=== PATIENT | male | born 1990 | race Caucasian/White ===

== ENCOUNTER 2018-04-13 12:11 | Emergency (ER) | payer SELFPAY ==
[~2018-04-13] VITALS: Ht 177.8 cm; Wt 86.4 kg
[2018-04-13 13:56] LABS: ALANINE AMINOTRANSFERASE 18 U/L (12-78); ALBUMIN 3.9 G/DL (3.4-5.0); ALBUMIN/GLOBULIN RATIO 1.1 (1.1-1.5); ALKALINE PHOSPHATASE 83 IU/L (46-116); ANION GAP 12 (8-16); ASPARTATE AMINO TRANSFERASE 15 U/L (10-37); BILIRUBIN,TOTAL 0.2 MG/DL (0.1-1.0); BLOOD UREA NITROGEN 8 MG/DL (7-18); BUN/CREATININE RATIO 12.3 (5.4-32.0); CALCIUM 8.7 MG/DL (8.5-10.1); CHLORIDE 107 MMOL/L (99-107); CREATININE 0.65 MG/DL (0.60-1.10); ETHANOL 0.099 GM/DL (0.0-0.010); GLUCOSE 102 MG/DL (70-104); POTASSIUM 3.6 MMOL/L (3.5-5.1); SODIUM 144 MMOL/L (135-145); TOTAL CARBON DIOXIDE 24.7 MMOL/L (24-32); TOTAL PROTEIN 7.3 G/DL (6.4-8.2); eGFR > 90 ML/MIN
[2018-04-13 13:59] LABS: BASOPHILS % (AUTO) 0.3 % (0-1); EOSINOPHILS # (AUTO) 0.1 X10'3 (0-0.9); EOSINOPHILS % (AUTO) 0.7 % (0-6); HEMATOCRIT 45.9 % (42.0-52.0); HEMOGLOBIN 15.7 g/dl (14.0-17.9); LYMPHOCYTES # (AUTO) 1.7 X10'3 (1.1-4.8); LYMPHOCYTES % (AUTO) 15.9 % (21-51); MEAN CORPUSCULAR HEMOGLOBIN 30.1 PG (27.0-31.0); MEAN CORPUSCULAR HGB CONC 34.1 g/dL (33.0-36.5); MEAN CORPUSCULAR VOLUME 88.2 FL (78-98); MEAN PLATELET VOLUME 8.6 FL (7.4-10.4); MONOCYTES # (AUTO) 0.7 X10'3 (0-0.9); MONOCYTES % (AUTO) 6.6 % (2-12); NEUTROPHILS % (AUTO) 76.5 % (42-75); PLATELET COUNT 232 X10'3 (140-440); RED BLOOD COUNT 5.21 X10'6 (4.70-6.10); WHITE BLOOD COUNT 10.4 X10'3 (4.5-11.0)
[2018-04-13 14:39] LABS: URINE AMPHETAMINE SCREEN NEGATIVE (Neg); URINE BARBITUATE SCREEN NEGATIVE (Neg); URINE BENZODIAZEPINES SCREEN NEGATIVE (Neg); URINE CANNABINOID SCREEN NEGATIVE (Neg); URINE COCAINE SCREEN NEGATIVE (Neg); URINE METHADONE SCREEN NEGATIVE (Neg); URINE OPIATE SCREEN NEGATIVE (Neg); URINE PHENCYCLIDINE SCREEN NEGATIVE (Neg)
--- NOTE | 2018-04-13 16:40 | NUR ---
Report given to specialist on-call.
--- NOTE | 2018-04-13 17:55 | NUR ---
report to Melida RN, pt taken to overflow
--- NOTE | 2018-04-13 18:11 | NUR ---
PACKET HAS BEEN FAXED TO [facility]
--- NOTE | 2018-04-13 19:00 | NUR ---
Assumed care of pt., pt calm at this time and rr even and unlabored. Pt's father is at bedside and reports that he received a phone call from the pt's x-girlfriend stating that the pt. was trying to hurtv himself. The father reports that he then called 911. Pt. states he and his girlfriend broke up 10 months ago, she is a meth addict, and they have two children together. 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 Children are with a aquarist at this time. Pt. denies any S/I at this time or any hx of depression or anxiety. He currently works at [employer], however does admit to drinking beer everyday.
--- NOTE | 2018-04-13 19:18 | NUR ---
Pt's father: Junior Olmos
--- NOTE | 2018-04-13 19:58 | NUR ---
[facility], Carmen, spoke with pt. and his father and let them know that pt. will be evaluated by [facility] in the AM. They voice understanding and father states he will be back in the morning for the evaluation.
--- NOTE | 2018-04-13 20:00 | NUR ---
Pt. reports no home medications. He refused dinner, but accepted HS snack.
--- NOTE | 2018-04-13 21:08 | NUR ---
Pt. asleep on his back at this time, rr even and unlabored.
--- NOTE | 2018-04-13 23:02 | NUR ---
Pt. continues to sleep, laying on rt. side, appears to be resting comfortably
--- NOTE | 2018-04-14 01:01 | NUR ---
Pt. sleeping on his back, rr even and unlabored.
--- NOTE | 2018-04-14 03:03 | NUR ---
Pt. asleep on his rt. side, no s/s of distress, will continue to monitor.
--- NOTE | 2018-04-14 05:04 | NUR ---
Pt. sleeping on his back, HOB elevated, rr even an unlabored.
[2018-04-14 05:55] VITALS: BP 119/78
--- NOTE | 2018-04-14 06:38 | NUR ---
Nursing Note: Pt laying on L side, eyes closed, respirations even and unlabored, no S&S of distress, will continue to monitor.
--- NOTE | 2018-04-14 08:27 | NUR ---
Nursing Note: Pt sitting up to eat breakfast. He denies SI and depression. 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
--- NOTE | 2018-04-14 09:55 | NUR ---
Nursing Note: [facility] social services aide at pt bedside performing evaluation. No S&S of distress.
--- NOTE | 2018-04-14 10:50 | NUR ---
Nursing Note: Reviewed pt's discharge instructions and provided opportunity for questions. Pt signed instructions. Pt denies SI and suicide attempt. Suicide prevention information provided to pt. Pt's father is on his way to cherry picker operator the pt, pt will be discharged once father arrives.
== END 2018-04-14 11:21 | disposition home or self-care (01) ==
LOC: ER 12:12
DX: T71.162A Asphyxiation due to hanging, intentional self-harm, initial encounter (principal); F43.10 Post-traumatic stress disorder, unspecified; F17.200 Nicotine dependence, unspecified, uncomplicated; Y92.89 Other specified places as the place of occurrence of the external cause
CPT/HCPCS: 36415; 80053; 80305; 80320; 85025; 99285

== ENCOUNTER 2024-07-08 12:52 | Emergency (ER) | payer BC ==
[~2024-07-08] VITALS: Ht 185.4 cm; Wt 98.0 kg
--- NOTE | 2024-07-08 13:10 | Physician Documentation ---
History of Present Illness ~ Chief Complaint: Overdose Stated Complaint: INTENTIONAL OD Time Seen by MD: 13:09 Source: patient, family HPI 33-year-old male history of depression prior suicide attempts presenting for overdose. Per his mother his ex-girlfriend and mother of his child completely called off their relationship the last few days. He was drinking and took all of his gabapentin. Potentially he may have also taking tizanidine and ibuprofen. given narcan and IVF. Medication Reconciliation Allergies: Coded Allergies: No Known Allergies (Unverified , 07/08/24) Scheduled Naproxen (Naproxen), 1 TAB PO BID, (Reported) Miscellaneous Medications Cyclobenzaprine HCl (Cyclobenzaprine HCl), PO, (Reported) Gabapentin (Gabapentin), TAB PO, (Reported) Discontinued Medications Ibuprofen* (Motrin*), 1 TAB PO Q8H, (Reported) Discontinued Reason: Other Review of Systems Unable to obtain complete ROS: altered mental status Physical Exam Vital Signs: Heart Rate: 83, Respiratory Rate: 18, BP: 112/71, Pulse Oximetry: 97, Weight: 98.000 Physical Exam Lethargic but arousable slurred speech Head atraumatic Chest clear to auscultation bilaterally No murmur Abdomen is soft nontender neuro GCS 9 [id number] Skin no rash or wound lower extremity no edema Progress Progress Note 6:38 p.m. patient remains extremely lethargic, he is still arousable but given his hypotension and persistent encephalopathy he will be admitted for further management consulted poison control they recommend symptomatic management. Results/Orders Reviewed/noted all lab results: Yes Results/Orders Orders - TIFFANIE DELA CRUZ MD Med Rec (07/08/24 13:04) 1799.11 (07/08/24 13:04) Close Observation Level (07/08/24 13:04) Covid19 Binax Poc Result Entry (07/08/24 13:04) Substance Use Navigator (07/08/24 13:04) Regular Diet (07/08/24 Dinner) Non-Behavioral Restraints (07/08/24 ) * Straight Cath* (07/08/24 13:08) Electrocardiogram (07/08/24 13:09) Electrocardiogram (07/09/24 13:09) Electrocardiogram (07/10/24 13:09) Electrocardiogram (07/11/24 13:09) Page Hospitalist (07/08/24 18:04) Fill Out Med Reconciliation (07/08/24 18:04) Completed Orders - TIFFANIE DELA CRUZ MD Cbc/Diff (07/08/24 13:04) Drug Screen, Urine (07/08/24 13:04) Ethanol (07/08/24 13:04) Acetaminophen (07/08/24 13:04) Salicylate (07/08/24 13:04) TSH (07/08/24 13:04) BMP (07/08/24 13:04) Ringers Solution, Lacted (Lactated Ringe (07/08/24 13:35) Normal Saline 1000ml (Sodium Chloride 10 (07/08/24 13:35) Ua With Microscopic (07/08/24 16:41) Medications Received in ER Medications (Trade) Dose Ordered Sig/Pedro Route PRN Reason Start Time Stop Time Status Last Admin Dose Admin Lactated Ringer's 1,000 ml @ 1,000 mls/hr ONCE ONCE IV 07/08/24 13:35 07/08/24 14:34 DC 07/08/24 14:04 1,000 MLS/HR Sodium Chloride 1,000 ml @ 1,000 mls/hr Q1H ONCE IVB 07/08/24 13:35 07/08/24 14:34 DC 07/08/24 13:48 1,000 MLS/HR Vital Signs 07/08/24 07/08/24 07/08/24 07/08/24 12:55 13:36 13:50 14:49 Pulse 83 79 78 Resp 18 18 11 18 B/P (MAP) 112/71 106/61 (76) 108/79 (89) Pulse Ox 97 98 99 O2 Flow Rate 0 07/08/24 07/08/24 07/08/24 07/08/24 15:25 16:02 16:43 17:20 Pulse 82 86 88 77 Resp 14 15 12 12 B/P (MAP) 104/75 (85) 94/62 (73) 106/71 (83) 95/63 (74) Pulse Ox 97 98 97 98 O2 Flow Rate 0 0 0 0 07/08/24 18:04 Pulse 87 Resp 18 B/P (MAP) 98/69 (79) Pulse Ox 98 O2 Flow Rate 0 Laboratory Tests Test 07/08/24 13:10 07/08/24 13:24 07/08/24 16:41 White Blood Count 7.0 Red Blood Count 5.19 Hemoglobin 15.5 Hematocrit 45.7 Mean Corpuscular Volume 88.1 Mean Corpuscular Hemoglobin 29.9 Mean Corpuscular Hemoglobin Concent 34.0 Red Cell Distribution Width 13.9 Platelet Count 252 Mean Platelet Volume 8.5 Neutrophils (%) (Auto) 69.2 Lymphocytes (%) (Auto) 25.5 Monocytes (%) (Auto) 4.4 Eosinophils (%) (Auto) 0.4 Basophils (%) (Auto) 0.5 Neutrophils # (Auto) 4.8 Lymphocytes # (Auto) 1.8 Monocytes # (Auto) 0.3 Eosinophils # (Auto) 0.0 Basophils # (Auto) 0.0 CBC Comment Sodium Level 140 Potassium Level 4.4 Chloride Level 105 Carbon Dioxide Level 23.6 L Anion Gap 11 Blood Urea Nitrogen 11 Creatinine 1.12 H Estimated GFR/1.73 m2 72 BUN/Creatinine Ratio 9.8 L Glucose Level 114 H Calcium Level 8.4 L Albumin 4.4 Thyroid Stimulating Hormone (TSH) 0.49 Chemistry Comments Salicylates Level 1.5 L Acetaminophen Level < 2.0 L Ethyl Alcohol Level 191 H SARS-CoV-2 Antigen (Rapid) Negative Urine Specimen Description Urinal Urine Color Yellow Urine Clarity Clear Urine pH 6.0 Urine Specific [place] 1.025 Urine Protein Trace Urine Glucose (UA) Negative Urine Ketones Trace H Urine Occult Blood Moderate H Urine Nitrite Negative Urine Bilirubin Negative Urine Urobilinogen 0.2 Urine Leukocyte Esterase Negative Urine RBC 3-10 Urine WBC 10-20 H Urine Squamous Epithelial Cells Few Urine Transitional Epithelial Cells Few Urine Bacteria 1+ Urine Hyaline Casts >30 Urine Fine Granular Casts 0-3 Volume Urine Centrifuged 10 ml Urine Comment Urine Opiates Screen Negative Urine Methadone Screen Negative Urine Fentanyl Screen Negative Urine Barbiturates Screen Negative Urine Phencyclidine Screen Negative Urine Amphetamines Screen Negative Urine Benzodiazepines Screen Negative Urine Cocaine Screen Negative Urine Cannabinoids Screen Negative Drug Screen Comment EKG/XRAY/CT/US/VASC/MRI EKG : Additional Comment EKG independently interpreted by myself time 12:58 p.m. indication symptomatic patient normal sinus rhythm rate 84 normal axis normal internal falls benign early repolarization Medical Decision Making Differential Dx:Considerations: Include: Alcohol abuse, Anxiety, Bipolar disorder Departure Disposition: ADMITTED INPATIENT Admitted to Inpatient Unit: to hospitalist Impression: Primary Impression: Alcoholic intoxication Qualified Codes: F10.920 - Alcohol use, unspecified with intoxication, uncomplicated Additional Impressions: Gabapentin overdose Qualified Codes: T42.6X2A - Poisoning by other antiepileptic and sedative- hypnotic drugs, intentional self-harm, initial encounter Metabolic encephalopathy Referrals: NO PRIMARY CARE PROVIDER (PCP) Critical Care Note Total Time (mins): 30 Critical Care Note The very real possibility of a deterioration of this patient's condition required the highest level of my preparedness for sudden, emergent intervention. I provided critical care services, which included medication orders, frequent reevaluations of the patient's condition and response to treatment, ordering and reviewing test results, and discussing the case with various consultants. Excludes time spent performing separately billable procedures. The critical care time associated with the care of the patient was 30 minutes in the management of encephalopathy GCS 9 hypotension requiring intervention Signature Scribe Signature: imani Attestation: TIFFANIE Goldberg MD July 08, 2024 13:10
[2024-07-08] MEDS ORDERED: IBUP-1984 PO (13:18)
[2024-07-08] MEDS ORDERED: GABA-1405 PO (13:18)
[2024-07-08] MEDS ORDERED: CYCL-394 PO (13:18)
[2024-07-08 13:27] LABS: BASOPHILS % (AUTO) 0.5 % (0-1); EOSINOPHILS % (AUTO) 0.4 % (0-6); HEMATOCRIT 45.7 % (42.0-52.0); HEMOGLOBIN 15.5 g/dl (14.0-17.9); LYMPHOCYTES # (AUTO) 1.8 X10'3 (1.1-4.8); LYMPHOCYTES % (AUTO) 25.5 % (21-51); MEAN CORPUSCULAR HEMOGLOBIN 29.9 PG (27.0-31.0); MEAN CORPUSCULAR VOLUME 88.1 FL (78-98); MEAN PLATELET VOLUME 8.5 FL (7.4-10.4); MONOCYTES # (AUTO) 0.3 X10'3 (0-0.9); MONOCYTES % (AUTO) 4.4 % (2-12); NEUTROPHILS # (AUTO) 4.8 X10'3 (1.8-7.7); NEUTROPHILS % (AUTO) 69.2 % (42-75); PLATELET COUNT 252 X10'3 (140-440); RED BLOOD COUNT 5.19 X10'6 (4.70-6.10); RED CELL DISTRIBUTION WIDTH 13.9 % (11.5-14.5)
[2024-07-08 13:43] LABS: ALBUMIN 4.4 G/DL (3.4-5.0); ANION GAP 11 (8-16); BLOOD UREA NITROGEN 11 MG/DL (7-18); BUN/CREATININE RATIO 9.8 (10.0-20.0); CALCIUM 8.4 MG/DL (8.5-10.1); CHLORIDE 105 MMOL/L (99-107); CREATININE 1.12 MG/DL (0.60-1.10); ETHANOL 191 MG/DL (<10); GLUCOSE 114 MG/DL (70-104); POTASSIUM 4.4 MMOL/L (3.5-5.1); SALICYLATE 1.5 MG/DL (4.0-20.0); SODIUM 140 MMOL/L (135-145); THYROID STIMULATING HORMONE 0.49 ulU/ml (0.34-4.50); TOTAL CARBON DIOXIDE 23.6 MMOL/L (24-32); eCRCL 97 ML/MIN; eGFR 72 ML/MIN
[2024-07-08 13:45] LABS: ACETAMINOPHEN < 2.0 UG/ML (10-30)
[2024-07-08] MEDS: normal saline 1000ml 1,000 ML IVB ONE (13:48)
[2024-07-08] MEDS: ringers solution, lacted 1,000 ML IV ONE (14:04)
[2024-07-08 16:56] LABS: BILIRUBIN,URINE NEGATIVE (Neg); CLARITY,URINE CLEAR (Clear); COLOR,URINE YELLOW (Yellow); GLUCOSE, URINE NEGATIVE (Neg); KETONES,URINE TRACE mg/dl (Neg); LEUKOCYTE ESTERASE ,URINE NEGATIVE (Neg); NITRITES, URINE NEGATIVE (Neg); OCCULT BLOOD,URINE MODERATE (Neg); PROTEIN,URINE TRACE mg/dl (Neg); UROBILINOGEN,URINE 0.2 E.U/dL (0.2-1.0)
[2024-07-08 17:01] LABS: UA COLLECTION TYPE URINAL
[2024-07-08 17:05] LABS: BACTERIA,URINE 1+ /HPF (Neg); SQUAMOUS EPITHELIAL CELL,UR FEW /LPF (FEW); TRANSITIONAL EPI CELLS,URINE FEW /HPF
[2024-07-08 17:06] LABS: FINE GRANULAR CAST 0-3 /LPF (NEGATIVE); HYALINE CASTS >30 /LPF (NEGATIVE)
[2024-07-08 17:07] LABS: URINE AMPHETAMINE SCREEN NEGATIVE (Neg); URINE BARBITUATE SCREEN NEGATIVE (Neg); URINE BENZODIAZEPINES SCREEN NEGATIVE (Neg); URINE CANNABINOID SCREEN NEGATIVE (Neg); URINE COCAINE SCREEN NEGATIVE (Neg); URINE METHADONE SCREEN NEGATIVE (Neg); URINE OPIATE SCREEN NEGATIVE (Neg); URINE PHENCYCLIDINE SCREEN NEGATIVE (Neg)
[2024-07-08] MEDS ORDERED: NAPR-1168 PO (18:11)
--- NOTE | 2024-07-09 05:39 | ELECTROCARDIOGRAPH REPORT ---
[facility] Test Date: 2024-07-08 Test Time: 12:58:17 Pat Name: [place] JO Department: EMERGENCY ROOM Patient ID: [id number] Room: Gender: M Cigar Brander: ROMAIN : 1990 Requested By: TIFFANIE DELA CRUZ Order Number: [id number] Reading MD: Dr. Oseas Ivory Measurements Intervals [place] Rate: 84 P: 65 AK: 143 QRS: 59 QRSD: 98 T: 4 QT: 359 QTc: 425 Interpretive Statements Sinus rhythm ST elevation, consider anterolateral injury Electronically Signed On 07-11-2024 21:45:[address] Oseas Ivory Please click the below link to view image of tracing.
[2024-07-09 08:19] VITALS: BP 131/83; PULSE 96; RESP 15; O2SAT 97
== END 2024-07-09 09:46 | disposition home or self-care (01) ==
LOC: ER 12:53 → EDBD 12:53 → MERGE 12:53 → ER 07-09 09:46
DX: T42.6X2A Poisoning by other antiepileptic and sedative-hypnotic drugs, intentional self-harm, initial encounter (principal); F10.129 Alcohol abuse with intoxication, unspecified; G93.41 Metabolic encephalopathy; Z20.822 Contact with and (suspected) exposure to COVID-19; Y92.89 Other specified places as the place of occurrence of the external cause; Y90.9 Presence of alcohol in blood, level not specified
CPT/HCPCS: 36415; 80048; 80305; 80320; 80329; 81001; 84443; 85025; 87811; 93005; 99291; J7030; J7120; C1758